=== PATIENT | male | born 1950 | race Caucasian/White ===

== ENCOUNTER 2016-08-21 17:14 | Inpatient (IN) | payer MEDICARE, BC ==
[~2016-08-21] VITALS: Ht 170.2 cm; Wt 132.4 kg
[2016-08-21] VITALS (9 sets, daily range): BP systolic 92–107; RESP 15–33; TEMP 100.5–100.7; BMI 45.7
[2016-08-21] MEDS ORDERED: PROPOFOL 100 ML 100 ML IV ONE (17:32)
[2016-08-21] MEDS ORDERED: VECURONIUM BR 10 MG/10 ML IV ONE (17:40)
[2016-08-21] MEDS ORDERED: NITROGLYCERIN/D5W 250 ML IV ONE (18:56)
[2016-08-21] MEDS ORDERED: Furosemide 40 MG/4 ML VIAL ONE (19:24)
[2016-08-21] MEDS: DUONEB INH SCH ×2 (20:35→23:15)
[2016-08-21] MEDS ORDERED: SALINE FLUSH 10 ML FLUSH PRN ×2 (21:40→22:00)
[2016-08-21] MEDS ORDERED: GLUCAGON 1 MG VIAL IM PRN (22:05)
[2016-08-21] MEDS ORDERED: DEXTROSE 50% SYRINGE 50 ML IV PRN (22:05)
[2016-08-21] MEDS ORDERED: SUCCINYLCHOLINE 20 MG/ML VL ONE (22:23)
[2016-08-21] MEDS ORDERED: ETOMIDATE 2 MG/ML VIAL IV ONE (22:23)
[2016-08-21] MEDS: SALINE FLUSH 10 ML FLUSH SCH (22:56)
[2016-08-21] MEDS ORDERED: NEB-ATROVENT INH SCH (23:00)
[2016-08-21] MEDS ORDERED: NEB-ALBUTEROL 2.5 MG/3 ML INH SCH (23:00)
[2016-08-22] VITALS (107 sets, daily range): BP systolic 90–149; RESP 0–32; TEMP 100.5–102.4
[2016-08-22] MEDS: CHLORHEXIDINE 0.12% ORAL CARE FOR VENT PATIENTS 15 ML SWAB SCH ×2 (00:21→12:54)
[2016-08-22] MEDS ORDERED: LIDOCAINE 2% SYR 5 ML IV ONE (00:26)
[2016-08-22] MEDS: DUONEB INH SCH ×4 (03:18→20:57)
[2016-08-22] MEDS: FENTANYL DRIP 50 ML IV PRN ×3 (05:13→22:04)
[2016-08-22] MEDS: SODIUM CHLORIDE 0.9% FLUSH BAG 500 ML IV SCH (05:15)
[2016-08-22] MEDS: PROPOFOL 100 ML 100 ML IV PRN ×2 (05:25→18:07)
[2016-08-22] MEDS ORDERED: SODIUM CHLORIDE 0.9% FLUSH BAG 500 ML IV SCH (06:00)
[2016-08-22] MEDS ORDERED: SALINE FLUSH 10 ML FLUSH SCH (08:00)
[2016-08-22] MEDS: SALINE FLUSH 10 ML FLUSH SCH ×2 (08:16→20:52)
[2016-08-22] MEDS: FAMOTIDINE 20 MG INJ IV SCH ×2 (08:16→20:52)
[2016-08-22] MEDS ORDERED: hePARIN in D5W (40 UNITS/ML) 500 ML IV SCH (08:50)
[2016-08-22] MEDS ORDERED: LEVOFLOXACIN 750 MG/150 ML 150 ML IV SCH (09:00)
[2016-08-22] MEDS ORDERED: ENOXAPARIN 40 MG/0.4 ML SYR SUBQ SCH (09:00)
[2016-08-22] MEDS: HEPARIN IV SCH (09:30)
[2016-08-22] MEDS: Furosemide 40 MG/4 ML VIAL IV SCH ×2 (09:36→18:15)
[2016-08-22] MEDS ORDERED: NITROGLYCERIN SL 0.4 MG TAB SL ONE (10:55)
[2016-08-22] MEDS ORDERED: PHARMACY TO DOSE VANCOMYCIN IV SCH (11:10)
[2016-08-22] MEDS ORDERED: PHARMACY TO DOSE CEFEPIME IV SCH (11:10)
[2016-08-22] MEDS ORDERED: Atorvastatin 20 MG TAB NG ONE (11:10)
[2016-08-22] MEDS ORDERED: *PATIENT RECEIVING TUBE FEEDS, ASSESS/ADJUST MEDICATIONS NG SCH (11:10)
[2016-08-22] MEDS: MAGNESIUM SULF 1 GM/100 ML 100 ML IV SCH ×2 (11:24→12:55)
[2016-08-22] MEDS ORDERED: DEXTROSE 50% SYRINGE 50 ML IV PRN (11:25)
[2016-08-22] MEDS ORDERED: NITROGLYCERIN 2% OINT 1 INCH PKT TOPICAL SCH (12:00)
[2016-08-22] MEDS ORDERED: MISSING DOSE XX ONE ×3 (13:35→23:35)
[2016-08-22] MEDS ORDERED: VANCOMYCIN 2,500 MG in SODIUM CHLORIDE 0.9% 500 ML IV ONE (14:10)
[2016-08-22] MEDS: CLOPIDOGREL 75 MG TAB NG SCH (14:43)
[2016-08-22] MEDS: PANTOPRAZOLE 40 MG VIAL IV SCH (14:43)
[2016-08-22] MEDS: METOPROLOL TART 25 MG TAB NG SCH ×2 (14:43→20:52)
[2016-08-22] MEDS ORDERED: ASPIRIN 81 MG CHEW TAB PO ONE (15:10)
[2016-08-22] MEDS: INSULIN DRIP 1 UNIT/ML 100 ML IV SCH (15:23)
[2016-08-22] MEDS: CEFEPIME 2000 MG/100 ML D5W 100 ML IV SCH ×2 (15:24→20:52)
[2016-08-22] MEDS ORDERED: ASPIRIN 81 MG CHEW TAB NG ONE (15:30)
[2016-08-22] MEDS: NITROGLYCERIN 2% OINT 1 INCH PKT TOPICAL SCH (18:15)
[2016-08-22] MEDS ORDERED: CARDIZEM 1 MG/ML DRIP 125 ML IV SCH (21:30)
[2016-08-22] MEDS ORDERED: DILTIAZEM 125 MG in DEXTROSE 125 ML IV ONE (21:30)
[2016-08-22] MEDS: POTASSIUM CHLORIDE PREMIX 50 ML IV SCH ×2 (22:02→23:47)
[2016-08-22] MEDS: NEB-XOPENEX 1.25 MG/3 ML INH SCH (22:26)
[2016-08-22] MEDS: ACETAMINOPHEN 325 MG TAB PO PRN (22:28)
[2016-08-23] VITALS (74 sets, daily range): BP systolic 83–154; RESP 11–27; TEMP 99.7–102.2
[2016-08-23] MEDS: CHLORHEXIDINE 0.12% ORAL CARE FOR VENT PATIENTS 15 ML SWAB SCH (00:10)
[2016-08-23] MEDS: NITROGLYCERIN 2% OINT 1 INCH PKT TOPICAL SCH ×5 (00:10→23:43)
[2016-08-23] MEDS: HEPARIN IV SCH ×3 (02:05→23:44)
[2016-08-23] MEDS: NEB-XOPENEX 1.25 MG/3 ML INH SCH ×6 (02:57→22:18)
[2016-08-23] MEDS: FENTANYL DRIP 50 ML IV PRN (03:23)
[2016-08-23] MEDS: PROPOFOL 100 ML 100 ML IV PRN (03:24)
[2016-08-23] MEDS: SODIUM CHLORIDE 0.9% FLUSH BAG 500 ML IV SCH (03:24)
[2016-08-23] MEDS ORDERED: MISSING DOSE XX ONE ×4 (06:00→23:55)
[2016-08-23] MEDS: INSULIN DRIP 1 UNIT/ML 100 ML IV SCH (06:29)
[2016-08-23] MEDS: FAMOTIDINE 20 MG INJ IV SCH ×2 (08:59→20:21)
[2016-08-23] MEDS: CEFEPIME 2000 MG/100 ML D5W 100 ML IV SCH ×3 (08:59→23:45)
[2016-08-23] MEDS: SALINE FLUSH 10 ML FLUSH SCH ×2 (08:59→20:22)
[2016-08-23] MEDS: CLOPIDOGREL 75 MG TAB NG SCH (09:08)
[2016-08-23] MEDS: METOPROLOL TART 25 MG TAB NG SCH (09:08)
[2016-08-23] MEDS ORDERED: METOPROLOL 5 MG/5 ML VIAL IV PRN (09:20)
[2016-08-23] MEDS: Furosemide 40 MG/4 ML VIAL IV SCH ×2 (10:11→18:03)
[2016-08-23] MEDS: POTASSIUM CHLORIDE PREMIX 50 ML IV SCH ×4 (10:11→14:56)
[2016-08-23] MEDS ORDERED: *TUBE FEEDS DISCONTINUED, ASSESS/ADJUST MEDICATIONS PO ONE (10:15)
[2016-08-23] MEDS: PANTOPRAZOLE 40 MG VIAL IV SCH (10:23)
[2016-08-23] MEDS: EPLERONONE 25 MG PO SCH (13:16)
[2016-08-23] MEDS: ACETAMINOPHEN 325 MG TAB PO PRN ×2 (13:18→18:24)
[2016-08-23] MEDS: Carvedilol 6.25 MG TAB PO SCH ×2 (13:19→20:21)
[2016-08-23] MEDS: Aspirin 325 MG TAB PO SCH (13:19)
[2016-08-23] MEDS ORDERED: ONDANSETRON 4 MG VIAL ONE (14:17)
[2016-08-23] MEDS ORDERED: ONDANSETRON 4 MG VIAL IV PUSH PRN (14:20)
[2016-08-23] MEDS: NITROGLYCERIN SL 0.4 MG TAB SL PRN ×2 (14:53→15:03)
[2016-08-23] MEDS ORDERED: DEXTROSE 50% SYRINGE 50 ML IV PRN (15:05)
[2016-08-23] MEDS ORDERED: GLUCAGON 1 MG VIAL IM PRN (15:05)
[2016-08-23] MEDS: Atorvastatin 20 MG TAB PO SCH (20:21)
[2016-08-23] MEDS: ISOSORBIDE MONO 30 MG TAB PO SCH (20:21)
[2016-08-23] MEDS: RANOLAZINE ER 500 MG TAB PO SCH (20:21)
[2016-08-23] MEDS ORDERED: Atorvastatin 20 MG TAB NG SCH (21:00)
[2016-08-24] VITALS (17 sets, daily range): BP systolic 81–140; RESP 12–27; TEMP 98.1–99.9; Ht 170.2 cm; Wt 132.4 kg
[2016-08-24] MEDS: SODIUM CHLORIDE 0.9% FLUSH BAG 500 ML IV SCH (05:46)
[2016-08-24] MEDS: NITROGLYCERIN 2% OINT 1 INCH PKT TOPICAL SCH (05:47)
[2016-08-24] MEDS: NEB-XOPENEX 1.25 MG/3 ML INH SCH ×5 (06:46→22:41)
[2016-08-24] MEDS: FAMOTIDINE 20 MG INJ IV SCH ×2 (08:57→20:25)
[2016-08-24] MEDS: EPLERONONE 25 MG PO SCH (09:07)
[2016-08-24] MEDS: Carvedilol 6.25 MG TAB PO SCH ×2 (09:07→20:25)
[2016-08-24] MEDS: RANOLAZINE ER 500 MG TAB PO SCH ×2 (09:08→20:25)
[2016-08-24] MEDS: SALINE FLUSH 10 ML FLUSH SCH ×2 (09:08→20:25)
[2016-08-24] MEDS: Aspirin 325 MG TAB PO SCH (09:08)
[2016-08-24] MEDS: CEFEPIME 2000 MG/100 ML D5W 100 ML IV SCH (09:09)
[2016-08-24] MEDS: POTASSIUM CHLORIDE PREMIX 50 ML IV SCH ×5 (09:10→12:00)
[2016-08-24] MEDS: Furosemide 40 MG/4 ML VIAL IV SCH ×2 (09:17→17:22)
[2016-08-24] MEDS: CLOPIDOGREL 75 MG TAB PO SCH (09:51)
[2016-08-24] MEDS: ISOSORBIDE MONO 30 MG TAB PO SCH ×2 (09:52→20:24)
[2016-08-24] MEDS: Losartan 50 MG TAB PO SCH (09:52)
[2016-08-24] MEDS: ENOXAPARIN 40 MG/0.4 ML SYR SUBQ SCH (17:22)
[2016-08-24] MEDS: Atorvastatin 20 MG TAB PO SCH (20:25)
[2016-08-25 02:58] VITALS: BP_SYST 82; RESP 16; TEMP 98.8
[2016-08-25] MEDS: SODIUM CHLORIDE 0.9% FLUSH BAG 500 ML IV SCH (05:12)
[2016-08-25] MEDS: NEB-XOPENEX 1.25 MG/3 ML INH SCH ×3 (06:01→14:06)
[2016-08-25] MEDS ORDERED: PANTOPRAZOLE 40 MG TAB PO SCH (07:00)
[2016-08-25] MEDS ORDERED: LANSOPRAZOLE 30 MG SOLUTAB NG SCH (07:00)
[2016-08-25 07:23] VITALS: BP_SYST 90; RESP 20; TEMP 98.7
[2016-08-25] MEDS: SALINE FLUSH 10 ML FLUSH SCH (08:40)
[2016-08-25] MEDS: ENOXAPARIN 40 MG/0.4 ML SYR SUBQ SCH (08:40)
[2016-08-25] MEDS: FAMOTIDINE 20 MG INJ IV SCH (08:40)
[2016-08-25] MEDS: Carvedilol 6.25 MG TAB PO SCH (08:41)
[2016-08-25] MEDS: Aspirin 325 MG TAB PO SCH (08:41)
[2016-08-25] MEDS: Furosemide 40 MG/4 ML VIAL IV SCH (08:41)
[2016-08-25] MEDS: RANOLAZINE ER 500 MG TAB PO SCH (08:41)
[2016-08-25] MEDS: CLOPIDOGREL 75 MG TAB PO SCH (08:41)
[2016-08-25] MEDS: EPLERONONE 25 MG PO SCH (08:41)
[2016-08-25] MEDS: Losartan 50 MG TAB PO SCH (08:41)
[2016-08-25] MEDS: ISOSORBIDE MONO 30 MG TAB PO SCH (08:41)
[2016-08-25 11:33] VITALS: BP_SYST 96; RESP 18; TEMP 98
[2016-08-25 14:11] VITALS: BP_SYST 96; RESP 18; TEMP 98
== END 2016-08-25 18:22 | disposition home or self-care (01) | DRG 871 ==
LOC: ENRESERV → ENRESERVTM → ENRESERVDT → ER 17:14 → EMR 21:39 → ENPENDDIS 21:39 → CCU 22:16 → PCU 08-24 14:31
PROVIDERS: ADMIT Internal Medicine; ATTEND Internal Medicine
CPT/HCPCS: 36415; 36600; 51702; 70450; 71010; 80048; 80051; 80053; 80061; 80202; 81001; 82040; 82330; 82550; 82553; 82803; 82947; 83036; 83605; 83735; 83880; 84100; 84439; 84443; 84484; 85025; 85610; 85730; 87040; 87071; 87088; 93005; 93306; 94002; 94003; 94640; 94660; 94799; 96365; 96366; 96367; 96368; 96375; 99223; 99232; 99233; 99239; 99291